=== PATIENT | female | born 1955 | race Caucasian/White ===

== ENCOUNTER 2023-12-07 17:11 | Emergency (ER) | payer OTHER ==
[~2023-12-07] VITALS: Ht 162.6 cm; Wt 68.6 kg
[2023-12-07 17:26] VITALS: BP 159/55; PULSE 60; RESP 16; O2SAT 100
== END 2023-12-07 18:46 | disposition left against medical advice (07) ==
LOC: ER 17:11
DX: Z43.1 Encounter for attention to gastrostomy (principal); Z53.21 Procedure and treatment not carried out due to patient leaving prior to being seen by health care provider

== ENCOUNTER 2023-12-10 11:17 | Emergency (ER) | payer OTHER ==
[~2023-12-10] VITALS: Ht 162.6 cm; Wt 68.1 kg
[2023-12-10 14:05] VITALS: BP 117/75; PULSE 54; RESP 12; RESP 14; TEMP 98.6; O2SAT 93; O2SAT 98
== END 2023-12-10 14:20 | disposition home or self-care (01) ==
LOC: ER 11:20
DX: T85.9XXD Unspecified complication of internal prosthetic device, implant and graft, subsequent encounter (principal); F15.90 Other stimulant use, unspecified, uncomplicated; E11.9 Type 2 diabetes mellitus without complications; Z98.890 Other specified postprocedural states; Y92.89 Other specified places as the place of occurrence of the external cause